=== PATIENT | female | born 1990 | race Caucasian/White ===

== ENCOUNTER 2018-04-18 10:43 | Emergency (ER) | payer OTHER ==
[~2018-04-18] VITALS: Ht 162.6 cm; Wt 98.6 kg
[~2018-04-18 10:43] MED LIST: LABE100T5 PO; PNV1TABL76 MT
[2018-04-18 19:19] VITALS: BP 135/91
== END 2018-04-18 19:21 | disposition home or self-care (01) ==
LOC: ER 14:02
DX: B00.1 Herpesviral vesicular dermatitis (principal); M25.50 Pain in unspecified joint; I10 Essential (primary) hypertension
CPT/HCPCS: 73130; 81025; 99284